=== PATIENT | male | born 1950 | race African-American/Black ===

== ENCOUNTER → 2016-06-15 | Outpatient (CLI) | payer OTHER ==
[~2016-06-15] MED LIST: ALPR0.2563 PO; ASPI-611 PO; BENZ-16 PO; FINA5TAB40 PO; FLUT16SP12 NS; FURO20TA6 PO; MAGN400T26 PO; SIMV40TA82 PO; SPIR25TA69 PO; TAMS0.4C20 PO; [UNRECOGNIZED DRUG - CODE] PO; klor-con PO
[2016-06-15 16:14] LABS: ALBUMIN 3.9 G/DL (3.5-5.0); ALBUMIN/GLOBULIN RATIO 1.1 RATIO (1.1-2.2); ALKALINE PHOSPHATASE 58 U/L (38-126); ALT (SGPT) 31 U/L (21-72); ANION GAP 13 MEQ/L (5-15); AST (SGOT) 21 U/L (17-59); BUN/CREATININE RATIO 11 RATIO (6-26); CALCIUM 9.2 MG/DL (8.4-10.2); CHLORIDE 105 MEQ/L (98-107); CO2 - CARBON DIOXIDE 30 MEQ/L (22-30); CREATININE 1.1 MG/DL (0.8-1.5); GLOMERULAR FILTRATION RATE 67; GLUCOSE 120 MG/DL (75-110); SODIUM 148 MEQ/L (134-144); TOTAL PROTEIN 7.4 G/DL (6.3-8.2)
[2016-06-15 16:22] LABS: PROBNP 136 PG/ML (0-175)
--- NOTE | 2016-06-15 17:46 | DI ---
INDICATION: ITS.REASON: R60.0 LOWER EXT SWELLING; R05 COUGH PROCEDURE: CHEST 2-VIEWS UPRIGHT (PA \T\ LAT) Encounter: Initial COMPARISON: None FINDINGS: The lungs are clear without evidence of focal abnormal airspace opacity. There is no pleural effusion or pneumothorax. There is a left subclavian AICD in place. There is mild cardiomegaly. No definite mediastinal or hilar adenopathy. No significant tortuosity of the descending thoracic aorta. There is no significant skeletal abnormality. IMPRESSION: Cardiomegaly without acute cardiopulmonary process. .
== END ==
LOC: IMA.CCC 15:22
PROVIDERS: ATTEND Nurse Practitioner
DX: I51.7 Cardiomegaly (principal); R05 Cough; R60.0 Localized edema
CPT/HCPCS: 36415; 80053; 83880